=== PATIENT | male | born 1990 | race Caucasian/White ===

== ENCOUNTER 2022-06-15 23:45 | Emergency (ER) | payer BC ==
[2022-06-16] MEDS ORDERED: Take Home: Sulfamethoxazole/Trimethoprim 800-160 MG Tab, 6 Tab Pack PO ONE (00:17)
== END 2022-06-16 00:39 | disposition home or self-care (01) ==
LOC: VM.ED 23:45
DX: L03.315 Cellulitis of perineum (principal); B37.49 Other urogenital candidiasis
CPT/HCPCS: 99283; A9270-GY

== ENCOUNTER 2022-08-11 01:40 | Emergency (ER) | payer BC, MEDICAID | END 2022-08-11 02:33 | disposition home or self-care (01) | LOC: VM.ED 01:40 | DX: K94.10 Enterostomy complication, unspecified (principal) | CPT/HCPCS: 99282; 99283 ==

== ENCOUNTER 2022-08-15 23:45 | Emergency (ER) | payer MEDICAID ==
[2022-08-16] MEDS: Ketorolac 30 MG/ML SDV IM ONE (00:10)
[2022-08-16] MEDS: Orphenadrine 60 MG/2 ML Inj IM ONE (00:11)
[2022-08-16] MEDS: Take Home: Cyclobenzaprine 10 MG Tab, 4 Tab Pack PO ONE (00:46)
[2022-08-16] MEDS: Take Home: Ketorolac 10 MG Tab, 4 Tab Pack PO ONE (00:46)
== END 2022-08-16 00:45 | disposition home or self-care (01) ==
LOC: EDBD → VM.ED 23:45 → MERGE 23:45 → VM.ED 08-16 00:45
DX: M54.50 Low back pain, unspecified (principal); Z72.0 Tobacco use
CPT/HCPCS: 96372; 99283; 99284; A9270-GY; J1885; J2360

== ENCOUNTER 2022-09-02 18:51 | Emergency (ER) | payer MEDICAID ==
[2022-09-02 20:02] LABS: CORONAVIRUS COVID-19 NAA NEGATIVE (NEGATIVE); RESPIRATORY SYNCYTIAL VIR NAA NEGATIVE (NEGATIVE)
== END 2022-09-02 20:11 | disposition home or self-care (01) ==
LOC: VM.ED 18:51
DX: M54.50 Low back pain, unspecified (principal); M79.604 Pain in right leg; R68.89 Other general symptoms and signs; Z20.822 Contact with and (suspected) exposure to COVID-19
CPT/HCPCS: 0241U; 99283; 99284

== ENCOUNTER 2022-09-06 00:07 | Emergency (ER) | payer MEDICAID ==
[2022-09-06] MEDS: Take Home: predniSONE 20 MG, 2 Tab Pack PO ONE (00:39)
== END 2022-09-06 00:35 | disposition home or self-care (01) ==
LOC: VM.ED 00:07
DX: J40 Bronchitis, not specified as acute or chronic (principal); Z72.0 Tobacco use
CPT/HCPCS: 99283; 99284; J7512

== ENCOUNTER 2022-09-22 00:05 | Emergency (ER) | payer MEDICAID ==
[2022-09-22] MEDS ORDERED: Ketorolac 30 MG/ML SDV IM ONE (00:36)
[2022-09-22] MEDS ORDERED: predniSONE 20 MG Tab PO ONE (00:36)
[2022-09-22] MEDS ORDERED: Take Home: Naproxen 500 MG Tab, 4 Tab Pack PO ONE (00:40)
== END 2022-09-22 01:24 | disposition home or self-care (01) ==
LOC: VM.ED 00:05
DX: G89.29 Other chronic pain (principal); M25.551 Pain in right hip
CPT/HCPCS: 96372; 99283; A9270-GY; J1885; J7512

== ENCOUNTER 2022-10-19 02:45 | Emergency (ER) | payer MEDICAID ==
[2022-10-19] MEDS ORDERED: Ketorolac 30 MG/ML SDV IM ONE (03:08)
== END 2022-10-19 03:24 | disposition home or self-care (01) ==
LOC: VM.ED 02:45
DX: M79.671 Pain in right foot (principal); F17.200 Nicotine dependence, unspecified, uncomplicated
CPT/HCPCS: 96372; 99283; J1885

== ENCOUNTER 2022-11-27 02:05 | Emergency (ER) | payer MEDICAID | END 2022-11-27 02:35 | disposition home or self-care (01) | LOC: VM.ED 02:05 | DX: Z48.01 Encounter for change or removal of surgical wound dressing (principal) | CPT/HCPCS: 99282 ==

== ENCOUNTER 2023-01-19 01:40 | Emergency (ER) | payer MEDICAID ==
[2023-01-19 01:49] VITALS: BP 134/78; PULSE 60
[2023-01-19] MEDS: Take Home: Acetaminophen/HYDROcodone 325-5 MG, 5 Tab Pack PO ONE (01:59)
== END 2023-01-19 02:06 | disposition home or self-care (01) ==
LOC: VM.ED 01:40
DX: M79.671 Pain in right foot (principal); G89.18 Other acute postprocedural pain; Z79.84 Long term (current) use of oral hypoglycemic drugs; Z79.899 Other long term (current) drug therapy
CPT/HCPCS: 99284; A9270-GY

== ENCOUNTER 2023-04-07 01:40 | Emergency (ER) | payer MEDICAID ==
[2023-04-07] MEDS ORDERED: Take Home: Doxycycline 100 MG Cap, 4 Cap Pack PO ONE (01:46)
[2023-04-07] MEDS ORDERED: Take Home: predniSONE 20 MG, 2 Tab Pack PO ONE (01:46)
== END 2023-04-07 02:03 | disposition home or self-care (01) ==
LOC: VM.ED 01:40
DX: J44.1 Chronic obstructive pulmonary disease with (acute) exacerbation (principal); F17.210 Nicotine dependence, cigarettes, uncomplicated; Z79.84 Long term (current) use of oral hypoglycemic drugs; Z79.899 Other long term (current) drug therapy
CPT/HCPCS: 99284; A9270-GY; J7512